=== PATIENT | female | born 1935 | race Caucasian/White ===

== ENCOUNTER 2017-02-18 18:32 | Emergency (ER) | payer OTHER ==
[~2017-02-18] VITALS: Ht 152.4 cm; Wt 53.1 kg
[2017-02-18 18:36] VITALS: BP_SYST 158
--- NOTE | 2017-02-18 18:40 | NUR ---
US at bedside.
--- NOTE | 2017-02-18 18:42 | NUR ---
Pt placed to ER waiting room in stable condition with family member.
--- NOTE | 2017-02-18 18:50 | NUR ---
PATIENT TO ER BED 3.SON AT BEDSIDE.PER SON PATIENT TRIPPED ON HER PURSE WHEN SHE GOT UP FROM SITTING DOWN AND FELL.HIT HER HEAD ON A HARD SURFACE AND BLOOD STARTED TO SQUIRT OUT FROM HER HEAD.COMPLAINING OF PAIN TO HEAD 5/10.NOTED WITH BUMP TO LEFT OCCIPITAL AREA;WITH DRY BLOOD;NO ACTIVE BLEEDING.DENIES N/V.NO OTHER COMPLAIN/INJURIES PER PATIENT OR NOTED
--- NOTE | 2017-02-18 18:54 | NUR ---
Pt placed to ER bed 3, family member at bedside. Pt report given to HENNY Falcon.
--- NOTE | 2017-02-18 18:56 | NUR ---
Dr. Hebert at bedside to assess pt.
--- NOTE | 2017-02-18 18:57 | NUR ---
Burt vazquez in ED - 02/18/17 at 1857 by ANGELIA RAMIRO Watson at bedside examining patient.
--- NOTE | 2017-02-18 19:09 | NUR ---
PATIENT TO RADIOLOGY FOR CT.ENDORSED ALL CARE TO TRACK CAR OPERATOR RN
[2017-02-18] MEDS ORDERED: ACETAMINOPHEN 500 MG TABLET PO ONE (19:45)
[2017-02-18 20:00] VITALS: BP_SYST 158
--- NOTE | 2017-02-18 20:00 | NUR ---
Patient given written and verbal discharge instructions and verbalizes understanding. ER MD DR. DARNELL discussed with patient the results and treatment provided. Patient in stable condition. ID arm band removed. NO EXCESSIVE BLEEDING AT WOUND SITE, COVERED W/ DRESSING, CLEAN DRY AND INTACT. Patient educated on pain management and to follow up with PMD. Pain Scale 2/10, PT STATES PAIN IS TOLERABLE, AND DOESN'T WANT PAIN MED RIGHT NOW, AMBULATED W/ STEADY GAIT. Opportunity for questions provided and answered.
== END 2017-02-18 20:00 | disposition home or self-care (01) ==
LOC: SED 18:32
DX: S01.01XA Laceration without foreign body of scalp, initial encounter (principal); J44.9 Chronic obstructive pulmonary disease, unspecified; K21.9 Gastro-esophageal reflux disease without esophagitis; I10 Essential (primary) hypertension; E78.00 Pure hypercholesterolemia, unspecified; W01.0XXA Fall on same level from slipping, tripping and stumbling without subsequent striking against object, initial encounter; Y93.89 Activity, other specified; Y92.89 Other specified places as the place of occurrence of the external cause; Y99.8 Other external cause status
CPT/HCPCS: 70450-TC; 72125-TC; 99284